=== PATIENT | male | born 1960 | race African-American/Black ===

== ENCOUNTER 2016-10-14 09:09 | Day surgery (SDC) | payer OTHER ==
[2016-10-12 18:04] VITALS: BMI 24.2
[2016-10-14] MEDS ORDERED: DEXAMETHASONE SOD PHOSPHATE/PF 10 MG/ML SDV ONE (10:49)
[2016-10-14] MEDS ORDERED: MIDAZOLAM HCL 2 MG/2 ML SINGLE DOSE VIAL ONE ×2 (10:49→11:24)
[2016-10-14] MEDS ORDERED: ROPIVACAINE HCL 0.5% 30ML VIAL ONE (10:50)
--- NOTE | 2016-10-14 11:13 | HP ---
Admitting History and Physical - Admission History of Present Illness: The patient is a 56 yo male a history of a right knee bursa for over a year. He has had it aspirated in the past. The mass has grown in size and is tender to palpation and with pressure on it. No CP, SOB, fevers. History Source: Patient Limitations to Obtaining History: No Limitations - Past Medical History Cardiovascular: No: Deep Vein Thrombosis, HTN Pulmonary: Yes: Sleep Apnea (uses CPAP). No: Asthma Gastrointestinal: No: Gastritis, GERD Renal/: Yes: Other (prostate cancer). No: Renal Failure, UTI Psych: Yes: Anxiety (Prostatectomy, appendectomy) - Advance Directives Advance Directives: Yes: Health Care Proxy - Smoking History Smoking history: Never smoked Have you smoked in the past 12 months: No - Alcohol/Substance Use Hx Alcohol Use: No Home Medications - Allergies Allergies/Adverse Reactions: Allergies Allergy/AdvReac Type Severity Reaction Status Date / Time No Known Allergies Allergy Verified 10/12/16 17:33 - Home Medications Home Medications: Ambulatory Orders Clonazepam [Klonopin] 2 mg PO DAILY 10/12/16 Elviteg/Lidia/Emtric/Tenofo Ala [Genvoya Tablet] 1 each PO DAILY 10/12/16 Methylphenidate HCl [Concerta] 54 mg PO DAILY 10/12/16 Vortioxetine Hydrobromide [Trintellix] 20 mg PO DAILY 10/12/16 Review of Systems - Review of Systems Constitutional: denies: Chills, Fever Neck: denies: Decreased ROM, Pain on Movement Cardiovascular: denies: Chest Pain, Edema, Palpitations Respiratory: denies: Cough, SOB Gastrointestinal: denies: Abdominal Pain, Melena Genitourinary: denies: Burning, Dysuria Musculoskeletal: reports: Extremity Pain (to right lower knee). denies: Decreased ROM, Joint Pain, Joint Swelling Neurological: denies: Headache, Syncope Hematology/Lymphatic: denies: Easily Bruised, Excessive Bleeding Physical Examination Vital Signs: Vital Signs Temperature 97.7 F 10/14/16 10:08 Pulse Rate 69 10/14/16 10:08 Respiratory Rate 18 10/14/16 10:08 Blood Pressure 106/72 10/14/16 10:08 O2 Sat by Pulse Oximetry (%) 99 10/14/16 10:08 Constitutional: Yes: Well Nourished, No Distress, Calm HENT: Yes: WNL, Atraumatic, Normocephalic Neck: Yes: WNL, Supple, Trachea Midline Cardiovascular: Yes: WNL, Pulse Irregular Respiratory: Yes: WNL, Regular, CTA Bilaterally Gastrointestinal: Yes: WNL, Normal Bowel Sounds, Soft Musculoskeletal: No: Joint Stiffness, Joint Swelling Extremities: Yes: Other (palpable right knee, mobile mass approximately 3x2cm). No: Calf Tenderness Edema: No Peripheral Pulses WNL: Yes Peripheral Pulses: Left Doralis Pedis: 2+, Right Dorsalis Pedis: 2+ Neurological: Yes: WNL, Alert, Oriented ...Motor Strength: WNL, LUE, LLE, RUE, RLE Psychiatric: Yes: WNL, Alert, Oriented Assessment/Plan 56 yo male with with right knee bursa for resection today He remains npo IV abx at time of incision LLE SCD for DVT ppx
[2016-10-14] MEDS ORDERED: BUPIVACAINE HCL/EPINEPHRINE/PF 30 ML VIAL IJ ONE (11:16)
[2016-10-14] MEDS ORDERED: TRANEXAMIC ACID 1000 MG/10 ML VIAL ONE (11:58)
[2016-10-14] MEDS ORDERED: PROPOFOL 20 ML ONE (11:58)
--- NOTE | 2016-10-14 12:16 | DS ---
Physical Examination Vital Signs: Vital Signs Temperature 97.7 F 10/14/16 10:08 Pulse Rate 69 10/14/16 10:08 Respiratory Rate 18 10/14/16 10:08 Blood Pressure 106/72 10/14/16 10:08 O2 Sat by Pulse Oximetry (%) 99 10/14/16 10:08 Discharge Summary Reason For Visit: RIGHT KNEE PRE-PATELLA BURSITIS Condition: Good - Instructions Diet, Activity, Other Instructions: Post Operative Instructions: Knee Dr Sekou Watson 1. Pain following an knee surgery is variable. Some patients will have more pain than others. You have been provided with a prescription for medication that contains a narcotic. You are not allowed to drive while on this medication. You should NOT take Tylenol (Acetaminophen) when taking the pain medication ( it will result in an overdose). Feel free to take medications such as Ibuprofen or Naprosyn in addition to the pain medicine if you do not have any problems with the NSAID class of medications. 2. You are allowed to remove the bandages and shower in 48 hours unless directed otherwise. You are not allowed to bathe or go swimming until the sutures are removed. Put band-aids on the sutures after your shower and do not put any creams or lotions over the incisions. 3. You are allowed to put all your weight on the leg and bend your knee. 4. Apply ice to the knee for 15 min every hour or so. You may continue this for as many days as you like. 5. Please call the office to schedule a visit to have your sutures removed. 6. If for any reason you believe you may have an infection or are concerned, please feel free to call me. I can be reached through our office number 24 hours a day. 7. Please call our office with any questions; we will review the surgical findings during your post operative visit. Disposition: HOME - Home Medications Comprehensive Discharge Medication List: Ambulatory Orders Clonazepam [Klonopin] 2 mg PO DAILY 10/12/16 Elviteg/Lidia/Emtric/Tenofo Ala [Genvoya Tablet] 1 each PO DAILY 10/12/16 Methylphenidate HCl [Concerta] 54 mg PO DAILY 10/12/16 Vortioxetine Hydrobromide [Trintellix] 20 mg PO DAILY 10/12/16
--- NOTE | 2016-10-14 12:16 | OP ---
Operative Note - Note: Operative Date: 10/14/16 Pre-Operative Diagnosis: right knee anterior deep mass Operation: open right knee mass excision Post-Operative Diagnosis: Same as Pre-op Surgeon: Sekou Watson Anesthesia: General Specimens Removed: mass Operative Report Dictated: Yes
[2016-10-14] MEDS ORDERED: LACTATED RINGERS SOLUTION 1,000 ML IV SCH (12:45)
[2016-10-14] MEDS ORDERED: oxyCODONE HCL 5 MG TABLET PO PRN (12:55)
[2016-10-14] MEDS ORDERED: ONDANSETRON 4 MG/2 ML VIAL IVPUSH PRN (12:55)
[2016-10-14 13:55] VITALS: TEMP 98.2
[2016-10-14 14:10] VITALS: BP 126/81; PULSE 60
--- NOTE | 2016-10-14 14:22 | SURG ---
Surgery Mechanical Engineering Advisor Note Mechanical Engineering Advisor: Gertrude Millard PA-C Date of Service: 10/14/16 Diagnosis: right knee anterior deep mass Procedure: open right knee mass excision I was present for the entirety of the operative procedure. For further detail, please refer to operative report. Visit type - Case Type Case Type: Scheduled Admission - Emergency Emergency Visit: Yes Care time: The patient presented to the Emergency Department on the above date and was hospitalized for further evaluation of their emergent condition. - New patient This patient is new to me today: Yes Date on this admission: 10/14/16 - Critical Care Critical Care patient: No
--- NOTE | 2016-10-19 16:04 | PATH ---
Surgical Pathology Report Patient Name: ROSALINA GOODEN [facility]. Rec. #: [id number] /Age/Gender: 1960 (Age: 56) / M Account: [id number] Location: [facility] AMBULATORY Taken: 10/14/2016 Received: 10/14/2016 Reported: 10/19/2016 Physicians: Sekou Watson M.D. Specimen(s) Received BURSA RIGHT KNEE Clinical History Bursa right knee Final Diagnosis "BURSA", RIGHT KNEE, EXCISION: EPIDERMAL INCLUSION CYST. NO BURSAL TISSUE IS IDENTIFIED. Electronically Signed Rosemary Lott M.D. Gross Description Received in formalin labeled "bursa right knee," is a 3.3 x 3.0 x 2.8 cm meeks, intact cystic structure containing toscano sebaceous material. A jewelry sales representative section is submitted in one cassette. /10/14/201610/14/2016
== END 2016-10-14 14:15 | disposition home or self-care (01) ==
LOC: FASU 09:09
PROVIDERS: ATTEND Orthopaedic Surgery
PROC: 0YBF0ZZ Excision of Right Knee Region, Open Approach (ICD-10-PCS; principal; 2016-10-14 11:41)
DX: M25.861 Other specified joint disorders, right knee (principal)
CPT/HCPCS: 87070; 87205; 88304-TC; 94760